=== PATIENT | male | born 1995 | race Hispanic/Latino ===

== ENCOUNTER 2018-12-19 22:04 | Emergency (ER) | payer MEDICAID ==
[2018-12-19 22:59] VITALS: PULSE 80; RESP 16
[2018-12-20] MEDS ORDERED: DiphenhydrAMINE 50 mg/ml Inj IV STA (00:37)
--- NOTE | 2018-12-20 01:16 | ED PDOC ---
HPI: Male Pain Time Seen by Provider: 12/19/18 23:17 Chief Complaint (Nursing): Male Genitourinary Chief Complaint (Provider): Male Genitourinary History Per: Patient History/Exam Limitations: no limitations Onset/Duration Of Symptoms: Days (x 2) Current Symptoms Are (Timing): Still Present Quality Of Discomfort: "Pain" Additional Complaint(s): 23 year old male with a history of asthma, depression and hypertriglyceridemia presents to the ED with testicular pain for two days. Patient reports the developed of intermittent pain since yesterday not associated wiuth sexual acitvity. He also denies penile discharge, fever, back pain and urinary symptoms. PMD: Dr. Monk/ Lin Past Medical History Reviewed: Historical Data Vital Signs: Last Vital Signs Temp 97.8 F 12/19/18 22:58 Pulse 80 12/19/18 22:58 Resp 16 12/19/18 22:58 BP 137/70 12/19/18 22:58 Pulse Ox 99 12/19/18 22:58 - Medical History PMH: Anxiety, Asthma, Depression Denies: Diabetes, Hepatitis, HIV, HTN, Chronic Kidney Disease, Seizures, Sexually Transmitted Disease Other PMH: hypertriglyceridemia - Surgical History Surgical History: No Surg Hx - Family History Family History: States: Unknown Family Hx - Social History Current smoker - smoking cessation education provided: No Alcohol: None Drugs: Denies - Home Medications Home Medications: Ambulatory Orders Medication Instructions Recorded Sertraline [Zoloft] 25 mg PO DAILY #30 tab 11/28/15 - Allergies Allergies/Adverse Reactions: Allergies Allergy/AdvReac Type Severity Reaction Status Date / Time walnut Allergy RASH Verified 12/19/18 22:57 chocolate Allergy RASH Uncoded 12/19/18 22:57 Review of Systems ROS Statement: Except As Marked, All Systems Reviewed And Found Negative Constitutional: Negative for: Fever Genitourinary Male: Positive for: Scrotal Pain. Negative for: Dysuria, Frequency, Incontinence, Hematuria, Penile Discharge Musculoskeletal: Negative for: Back Pain Physical Exam - Reviewed Nursing Documentation Reviewed: Yes Vital Signs Reviewed: Yes - Physical Exam Appears: Positive for: No Acute Distress Head Exam: Positive for: ATRAUMATIC, NORMAL INSPECTION, NORMOCEPHALIC Skin: Positive for: Normal Color, Warm, Dry Cardiovascular/Chest: Positive for: Regular Rate, Rhythm. Negative for: Murmur Respiratory: Positive for: Normal Breath Sounds. Negative for: Respiratory Distress Male Genital Exam: Positive for: normal genitalia (uncircumcised), other ((+) bilateral cremasteric reflexes). Negative for: urethral discharge Neurologic/Psych: Positive for: Alert, Oriented (x 3). Negative for: Motor/Sensory Deficits - ECG O2 Sat by Pulse Oximetry: 99 (RA) Pulse Ox Interpretation: Normal Medical Decision Making Medical Decision Makin:41 Impression: 23 year old with testicular pain Initial Plan: --Tramadol 50 mg PO --UA --Urine dip --Testes US 00:54 US FINDINGS: RIGHT TESTICLE: Right testicle measures 3.8 x 3.7 x 2.3 cm. Right testicle demonstrates normal homogeneous echogenicity. Right testicle demonstrates normal Doppler flow. LEFT TESTICLE: Left testicle measures 4.0 x 2.8 x 2.7 cm. Left testicle demonstrates normal homogeneous echogenicity. Left testicle demonstrates normal Doppler flow. EPIDIDYMIDES: Within normal limits in size and vascularity SCROTUM: There is a left-sided extratesticular varicocele. MISCELLANEOUS: Both epididymi within normal limits. Symmetric flow to both testes. IMPRESSION: 1. Normal sonographic appearance of both testes. 2. There is a left-sided extratesticular varicocele. 3. Both epididymi within normal limits. 4. Symmetric flow to both testes. 5. No evidence for epididymoorchitis or torsion. 01:20 Patient is stable for discharge. Advised to continue NSAIDs and follow with urology. Return precautions provided. Scribe Attestation: Documented by Miladys Caraballo acting as a scribe for Rajiv Jimenez MD Provider Scribe Attestation: All medical record entries made by the Scribe were at my direction and personally dictated by me. I have reviewed the chart and agree that the record accurately reflects my personal performance of the history, physical exam, medical decision making, and the department course for this patient. I have also personally directed, reviewed, and agree with the discharge instructions and disposition. Disposition - Clinical Impression Clinical Impression: Testicular pain, Varicocele - Patient ED Disposition Is Patient to be Admitted: No (0121) - Disposition Referrals: Lavern Parra MD [Medical Doctor] - Disposition Time: 01:21 Condition: STABLE Instructions: Varicocele, Testicular Injury Forms: [employer] (Russian)
[2018-12-20 09:26] VITALS: BP 122/66; TEMP 98
--- NOTE | 2018-12-20 13:50 | US ---
Date of service: 12/19/2018 HISTORY: testicular pain TECHNIQUE: Realtime sonography through the scrotum with color and doppler flow. COMPARISON: None Available. FINDINGS: RIGHT TESTICLE: Measures 3.8 x 3.7 x 2.3 cm. Normal echotexture and flow. RIGHT EPIDIDYMIS: Epididymal head measures 3.0 x 0.6 x 0.7 cm. Grossly unremarkable appearance with normal flow. LEFT TESTICLE: Measures 4.0 x 2.8 x 2.7 cm. Normal echotexture and flow. LEFT EPIDIDYMIS: Epididymal head measures 2.7 x 1.3 x 0.8 cm. Grossly unremarkable appearance with normal flow. HYDROCELE: There are all trace bilateral hydroceles (around each epididymal head) present these were not mentioned by the cardiac technologist for the [facility] [employer] preliminary report VARICOCELE: Small left-sided varicocele OTHER FINDINGS: None. IMPRESSION: No intratesticular pathology suggested. Specifically no epididymoorchitis or torsion suggested. Incidentally noted are probably trace bilateral hydroceles addendum given the minute fluid around each epididymis.-findings are as noted above. Small left-sided varicocele. Essentially the [place] rad report preliminary findings are concordant with these findings
[2018-12-20 22:54] VITALS: O2SAT 99
== END 2018-12-20 02:12 | disposition home or self-care (01) ==
LOC: H.ER 22:04
DX: N50.819 Testicular pain, unspecified (principal); I86.1 Scrotal varices; J45.909 Unspecified asthma, uncomplicated; Z86.59 Personal history of other mental and behavioral disorders